=== PATIENT | male | born 1985 | race Caucasian/White ===

== ENCOUNTER 2023-09-10 06:53 | Outpatient (OUT) | payer OTHER, SELFPAY ==
[2023-09-10 07:21] LABS: Hematocrit 46.1 % (42.0-54.0); Hemoglobin 16.1 g/dL (14.0-18.0); Mean Corpuscular HGB Conc 34.9 g/dL (29.9-35.2); Mean Corpuscular Hemoglobin 29.8 pg (25.9-34.0); Mean Corpuscular Volume 85.2 fL (80.0-94.0); Mean Platelet Volume 11.9 fL (9.5-13.5); Platelet Count 157 10^3/uL (150-450); Red Blood Count 5.41 10^6/uL (4.70-6.10); Red Cell Distribution Width 12.7 % (11.0-15.0); White Blood Count 5.3 10^3/uL (4.0-11.0)
[2023-09-10 08:35] LABS: Alanine Aminotransferase 34 U/L (16-63); Albumin Globulin Ratio 1.3; Alkaline Phosphatase 85 U/L (46-116); Anion Gap 12.3; Aspartate Amino Transferase 20 U/L (15-37); BUN Creatinine Ratio 23.8; Bilirubin Total 0.4 mg/dL (0.2-1.0); Calcium 8.9 mg/dL (8.5-10.1); Carbon Dioxide 28.9 mmol/L (21.0-32.0); Chloride 105 mmol/L (98-107); Chol HDL Ratio 4.4; Cholesterol 166 mg/dL (<=200); Estimated GFR (African America >60 (>=60); Estimated GFR (Non-African Ame >60 (>=60); Globulin 3.2 g/dL; Glucose 92 mg/dL (74-106); HDL Cholesterol 38 mg/dL (40-60); Potassium 4.2 mmol/L (3.5-5.1); Sodium 142 mmol/L (136-145); TSH W/ REFLEX FT4 1.733 uIU/mL (0.358-3.740); Total Protein 7.2 g/dL (6.4-8.2); Triglycerides 59 mg/dL (<=150); VLDL CHOLESTEROL 11.8 mg/dL
[2023-09-11 06:08] LABS: HCV Ab Non Reactive (Non Reactive); HIV Ab/p24 Ag Screen Non Reactive (Non Reactive)
[2023-09-15 01:07] LABS: Free Testosterone(Direct) 9.4 pg/mL (8.7-25.1); Testosterone 455 ng/dL (264-916)
== END 2023-09-10 06:54 | disposition home or self-care (01) ==
LOC: LAB 06:59
PROVIDERS: PCP Nurse Practitioner; Visit Provider Nurse Practitioner
DX: Z00.00 Encounter for general adult medical examination without abnormal findings (principal); Z13.6 Encounter for screening for cardiovascular disorders; Z11.59 Encounter for screening for other viral diseases; Z11.4 Encounter for screening for human immunodeficiency virus [HIV]; E34.9 Endocrine disorder, unspecified; R53.83 Other fatigue
CPT/HCPCS: 36415; 80053; 80061; 84402; 84403; 84443; 85027; 86803; 87389

== ENCOUNTER 2023-09-19 07:53 | Outpatient (OUT) | payer OTHER, SELFPAY ==
--- NOTE | 2023-09-19 07:57 | US_ITS ---
The [address] [address] Patient Name: JOYCELYN BELLO MRN: [id number] date: 1985 Sex: M Assigned Patient Location: US Current Patient Location: Accession/Order Number: [id number] Exam Date: 09/19/2023 08:00 Report Date: 09/20/2023 05:58 At the request of: AWLTER MYERS Procedure: US abdomen limited EXAMINATION: US abdomen limited HISTORY: Mass of abdomen R19.00 ; chronic small palpable lumps within abdominal wall increasing in number COMPARISON: No relevant comparison available. TECHNIQUE: Transabdominal evaluation of the right upper quadrant. FINDINGS: Multiple hyperechoic thinly marginated lesions within the subcutaneous fat of the anterior abdominal wall; largest is 1.6 x 1.4 x 0.9 cm. No appreciable internal blood flow on color Doppler. US/US abdomen limited IMPRESSION: 1. Multiple subcutaneous lesions within anterior abdominal wall suspected to represents leiomyomas. Ultrasound-guided tissue sampling could be performed if clinically indicated. Electronically authenticated by: JERARDO MOORE Date: 09/20/2023 05:58
== END 2023-09-19 07:54 | disposition home or self-care (01) ==
LOC: US 07:53
PROVIDERS: PCP Nurse Practitioner; Visit Provider Nurse Practitioner
DX: R19.00 Intra-abdominal and pelvic swelling, mass and lump, unspecified site (principal)
CPT/HCPCS: 76705

== ENCOUNTER 2023-11-25 14:21 | Day surgery (SDC) | payer OTHER, SELFPAY ==
--- NOTE | 2023-11-25 | OP_ITS ---
OPERATION DATE: 11/25/2023 PREOPERATIVE DIAGNOSIS: Enlarging subcutaneous nodule left upper abdominal wall. POSTOPERATIVE DIAGNOSIS: Enlarging subcutaneous nodule left upper abdominal wall, consistent with lipoma. PROCEDURE: Excisional biopsy of lipoma left upper abdominal wall, total length 1.5 cm. SURGEON: Eddie Yates M.D. ANESTHESIA: Local with 0.5% Marcaine plain. ESTIMATED BLOOD LOSS: Less than 2 mL. INDICATIONS AND CONSENT: Patient is a 38-year-old male with history of enlarging subcutaneous nodule in the left upper abdominal wall, which is sore at times. No skin changes or injury. Indications, risks, benefits, alternatives of proceeding with excisional biopsy under local anesthesia were explained extensively to the patient, including risks of bleeding, infection, scarring, pain, recurrence, need for further surgery or anesthetic complications. All of his questions were answered. Informed consent was obtained. PROCEDURE: Patient brought to the procedure room, placed in the supine position. The area was prepped and draped in the usual sterile fashion. It was anesthetized with 0.5% Marcaine plain. A transverse incision was made over the long axis of the lesion with the scalpel blade and carried down through subcutaneous tissue using sharp dissection. The 1.5 cm lipoma was encountered and freed up and sent off to Pathology. The wound was irrigated. There was good hemostasis. The subcutaneous tissue was re-approximated with interrupted 3-0 Monocryl suture. Skin was then closed with a running 4-0 subcuticular Monocryl suture and skin glue. A sterile dressing was applied. Sponge and needle counts were correct x3 per nursing personnel. Patient tolerated procedure well, was sent back to recovery room and discharged to home in good condition. He is to follow up in 7-10 days for a wound check. He is to call sooner with any problems or questions. CC: BASHIR Orourke
[2023-11-25 14:29] VITALS: BP 132/70; PULSE 93; TEMP 36.6; O2SAT 99; BMI 25.7
[2023-11-25 15:02] VITALS: BP 153/85; PULSE 88; O2SAT 96
[2023-11-25] MEDS: BUPIVACAINE HCL 0.5% PF 50 MG/10 ML VIAL INJ (15:12)
[2023-11-25 15:21] VITALS: PULSE 70; O2SAT 96
[2023-11-25 15:22] VITALS: BP 152/83
== END 2023-11-25 15:28 | disposition home or self-care (01) ==
PROVIDERS: PCP Nurse Practitioner; Visit Provider Surgery
PROC: (CPT 22902; principal; 2023-11-25 12:40)
DX: D17.1 Benign lipomatous neoplasm of skin and subcutaneous tissue of trunk (principal); F17.210 Nicotine dependence, cigarettes, uncomplicated
CPT/HCPCS: 22902; 88304; J0665

== ENCOUNTER 2024-08-27 06:53 | Outpatient (OUT) | payer OTHER, SELFPAY ==
[2024-08-27 07:37] LABS: Alanine Aminotransferase 21 U/L (16-63); Albumin Globulin Ratio 1.3; Albumin Level 4.1 g/dL (3.4-5.0); Alkaline Phosphatase 79 U/L (46-116); Anion Gap 15.1; Aspartate Amino Transferase 14 U/L (15-37); BUN Creatinine Ratio 22.9; Bilirubin Total 0.7 mg/dL (0.2-1.0); Calcium 8.7 mg/dL (8.5-10.1); Carbon Dioxide 25.9 mmol/L (21.0-32.0); Chloride 106 mmol/L (98-107); Chol HDL Ratio 4.1; Cholesterol 179 mg/dL (<=200); Estimated GFR (African America >60 (>=60 mL/min/1.73m^2); Estimated GFR (Non-African Ame >60 (>=60 mL/min/1.73m^2); Globulin 3.1 g/dL; Glucose 98 mg/dL (74-106); HDL Cholesterol 44 mg/dL (40-60); LDL Cholesterol Calculated 115.8 mg/dL; Sodium 143 mmol/L (136-145); Total Protein 7.2 g/dL (6.4-8.2); Triglycerides 96 mg/dL (<=150); VLDL CHOLESTEROL 19.2 mg/dL
[2024-08-27 08:05] LABS: Estimated Average Glucose 97 mg/dL
== END 2024-08-27 06:54 | disposition home or self-care (01) ==
LOC: LAB 06:54
PROVIDERS: PCP Nurse Practitioner; Visit Provider Internal Medicine
DX: Z13.6 Encounter for screening for cardiovascular disorders (principal); Z13.1 Encounter for screening for diabetes mellitus
CPT/HCPCS: 36415; 80053; 80061; 83036